=== PATIENT | male | born 1995 | race Caucasian/White ===

== ENCOUNTER 2017-01-28 15:50 | Emergency (ER) | payer OTHER ==
[2017-01-28 16:04] VITALS: BP 126/56; PULSE 75; TEMP 98.6; BMI 24.3
[2017-01-28] MEDS ORDERED: MAG HYDROX/AL HYDROX/SIMETH 30 ML UNIT-DOSE CUP PO ONE (16:37)
[2017-01-28] MEDS ORDERED: MAG HYDROX/AL HYDROX/SIMETH 30 ML UNIT-DOSE CUP ONE (16:42)
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
== END 2017-01-28 20:11 | disposition home or self-care (01) ==
LOC: JERFT 15:50
DX: S02.69XA Fracture of mandible of other specified site, initial encounter for closed fracture (principal); Y04.2XXA Assault by strike against or bumped into by another person, initial encounter; Y93.89 Activity, other specified; Y92.480 Sidewalk as the place of occurrence of the external cause; Y07.9 Unspecified perpetrator of maltreatment and neglect
CPT/HCPCS: 70486-TC; 99281-25

== ENCOUNTER 2018-07-26 23:12 | Emergency (ER) | payer SELFPAY ==
[2018-07-26 23:20] VITALS: BP 131/58; PULSE 72; TEMP 98; BMI 24.1
--- NOTE | 2018-07-26 23:51 | PDOC ---
History of Present Illness - General Chief Complaint: Pain Stated Complaint: ABDOMINAL PAIN Time Seen by Provider: 07/26/18 23:50 - History of Present Illness Initial Comments: 07/27/18 00:19 The patient is a 22 year old male with no significant PMH who presents for evaluation of nausea, vomiting, abdominal pain. The patient reports a 3 day history of nausea, non-bilious, non-bloody vomiting and sharp epigastric abdominal pain prompting his presentation to the ED for further evaluation. He notes that he believes his symptoms began after eating dinner several days ago. He otherwise denies fevers, chills, SOB, chest pain, or changes with urination or bowel movements. Past History - Past Medical History Allergies/Adverse Reactions: Allergies Allergy/AdvReac Type Severity Reaction Status Date / Time No Known Allergies Allergy Verified 07/26/18 23:20 Home Medications: Ambulatory Orders Famotidine [Pepcid -] 20 mg PO DAILY #7 tablet 07/27/18 Ondansetron [Zofran -] 4 mg PO TID #21 tablet 07/27/18 COPD: No - Suicide/Smoking/Psychosocial Hx Smoking History: Never smoked Have you smoked in the past 12 months: No Number of Cigarettes Smoked Daily: 3 Information on smoking cessation initiated: No Hx Alcohol Use: No Drug/Substance Use Hx: No Substance Use Type: None Review of Systems - Review of Systems Comments:: 07/27/18 00:21 Constitutional: No fevers, chills, fatigue, malaise HEENT: No Rhinorrhea, nasal congestion, visual changes Cardiovascular: No chest pain, syncope, palpitations, lightheadedness Respiratory: No Cough, SOB, Hemoptysis, Gastrointestinal: Abdominal pain, nausea, vomiting. No Constipation, Diarrhea, Melena Genitourinary: No Dysuria, Frequency, Urgency, Hesitancy, Hematuria, Flank pain Musculoskeletal: No Myalgia, arthralgia Skin: No rashes, itching, bruising, pallor Neurologic: No Headache, Dizziness, Numbness, Weakness, or Tingling Psychiatric: No Hallucinations. No SI or HI *Physical Exam - Vital Signs Last Vital Signs Temp Pulse Resp BP Pulse Ox 98.0 F 72 16 131/58 L 98 07/26/18 23:19 07/26/18 23:19 07/26/18 23:19 07/26/18 23:19 07/26/18 23:19 - Physical Exam Comments: 07/27/18 00:21 General Appearance: Nourished. No Apparent Distress HEENT: No Pharyngeal Erythema, Tonsillar Exudate, Tonsillar Erythema Neck: No Cervical Lymphadenopathy Respiratory/Chest: Lungs Clear, Normal Breath Sounds. No Crackles, Rales, Rhonchi, Wheezing Cardiovascular: Regular Rhythm, Regular Rate. No Murmur, Gallops, Rubs Gastrointestinal/Abdominal: Normal Bowel Sounds, Soft. Mild epigastric discomfort with deep palpation. No Guarding, Rebound, Tenderness Musculoskeletal: No CVA Tenderness Extremity: Normal Capillary Refill Integumentary: Normal Color, Dry, Warm Neurologic: Fully Oriented, Alert, Normal Mood/Affect, Normal Response, Moderate Sedation - Procedure Monitoring Vital Signs: Procedure Monitoring Vital Signs Temperature 98.0 F 07/26/18 23:19 Pulse Rate 72 07/26/18 23: Respiratory Rate 16 07/26/18 23:19 Blood Pressure 131/58 L 07/26/18 23:19 O2 Sat by Pulse Oximetry (%) 98 07/26/18 23:19 ED Treatment Course - LABORATORY CBC & Chemistry Diagram: 07/27/18 00:27 07/27/18 00:27 Medical Decision Making - Medical Decision Making 07/27/18 00:22 The patient is a 22 year old male with no significant PMH who presents for evaluation of nausea, vomiting, abdominal pain. Differential includes but is not limited to: Gastritis, Pancreatitis, Viral, Infectious, Metabolic Derangement. Given the patient's history and physical exam, we will obtain a cbc, cmp, lipase to evaluate further. We will treat with iv fluids, pepcid, zofran, maalox and continue to monitor and reassess while here in the ED. 07/27/18 01:40 CBC, cmp, lipase are unremarkable. The patient reports improvement in his symptoms. We are comfortable discharging the patient home with primary care provider follow up. It is likely the patient's symptoms are due to a viral gastroenteritis. We discussed the results, plan, and return precautions with the patient who voiced understanding and is agreeable with the plan. *DC/Admit/Observation/Transfer Diagnosis at time of Disposition: Nausea and vomiting Qualifiers: Vomiting type: unspecified Vomiting Intractability: non-intractable Qualified Code(s): R11.2 - Nausea with vomiting, unspecified Abdominal pain Qualifiers: Abdominal location: unspecified location Qualified Code(s): R10.9 - Unspecified abdominal pain - Discharge Dispostion Disposition: HOME Condition at time of disposition: Stable - Prescriptions Prescriptions: Famotidine [Pepcid -] 20 mg PO DAILY #7 tablet Ondansetron [Zofran -] 4 mg PO TID #21 tablet - Referrals Referrals: Hermilo Mar MD [Staff Physician] - - Patient Instructions Printed Discharge Instructions: DI for Nausea -- Adult, DI for Vomiting -- Adult, DI for Abdominal Pain-Adult Additional Instructions: Please return to the ER if you experience concerning or worsening symptoms including worsening difficulty breathing, weakness, or chest pain. Your lab results were normal here in the ER. Please call to schedule a follow up appointment with your primary care provider within 2-3 days to discuss your ER visit and further management of your symptoms. Por favor, regrese a la ER si experimenta o empeora los sntomas, incluyendo el empeoramiento de la dificultad respiratoria, debilidad o dolor torcico. Los resultados de domingo laboratorio timmy normales aqu en urgencias. Por favor llame para programar catalina juventino de seguimiento con domingo proveedor de atencin primaria dentro de 2-3 edouard para discutir domingo visita de urgencias y la administracin de patsy sntomas. Print Language: VINCENTIAN - Post Discharge Activity
[2018-07-26] MEDS ORDERED: SODIUM CHLORIDE 1,000 ML IV STA (23:55)
[2018-07-26] MEDS ORDERED: FAMOTIDINE 20 MG/50 ML IVPB 20 MG/50 ML MG IVPB ONE (23:55)
[2018-07-26] MEDS ORDERED: MAG HYDROX/AL HYDROX/SIMETH 30 ML UNIT-DOSE CUP PO ONE (23:55)
[2018-07-26] MEDS ORDERED: ONDANSETRON 4 MG/2 ML VIAL IVPUSH ONE (23:55)
[2018-07-27] MEDS ORDERED: MAG HYDROX/AL HYDROX/SIMETH 30 ML UNIT-DOSE CUP ONE (00:32)
[2018-07-27] MEDS ORDERED: FAMOTIDINE 20 MG/50 ML IVPB 20 MG/50 ML MG IVPB ONE (00:32)
[2018-07-27] MEDS ORDERED: ONDANSETRON 4 MG/2 ML VIAL ONE (00:32)
[2018-07-27 01:05] LABS: BASO % 0.5 % (0-2.0); EOS % 2.7 % (0-4.5); HEMATOCRIT 43.4 % (35.4-49); HEMOGLOBIN 15.2 GM/dL (11.7-16.9); LYMPH % 41.5 % (8-40); MCH 33.3 pg (25.7-33.7); MCHC 35.1 g/dl (32.0-35.9); MEAN CELL VOLUME 94.8 fl (80-96); MEAN PLT VOLUME 8.5 fl (7.5-11.1); NEUT % 48.3 % (42.8-82.8); PLATELET COUNT 247 K/MM3 (134-434); RBC 4.58 M/mm3 (4.00-5.60); RDW 12.5 % (11.9-15.9); WHITE BLOOD COUNT 5.9 K/mm3 (4.0-10.0)
--- NOTE | 2018-07-27 01:09 | PDOC ---
Attending Attestation - Resident Resident Name: Sadiq Kirkel - ED Attending Attestation I have performed the following: I have examined & evaluated the patient, The case was reviewed & discussed with the resident, I agree w/resident's findings & plan, Exceptions are as noted - HPI HPI: 07/27/18 01:08 22 yo male p/w several days of nausea and vomiting 07/27/18 01:09 - Physicial Exam PE: 07/27/18 01:35 wnwd 22 yo male p/w nausea and vomiting head ncat neck supple lungs cta b/l cvs [id number] abd no rebound,no guarding ext no edema skin warm and dry no flank pain neuro axox3,ambulatory - Medical Decision Making 07/27/18 01:39 pt is afebrile,benign abd exam, labs are unremarkable imp gastritis, d/c home
[2018-07-27 01:28] LABS: ALBUMIN 4.6 g/dl (3.4-5.0); ALK PHOS 104 U/L (45-117); ANION GAP 7 MMOL/L (8-16); BILIRUBIN,TOTAL 0.6 mg/dL (0.2-1); BLOOD UREA NITROGEN 14 mg/dL (7-18); CALCIUM 9.1 mg/dL (8.5-10.1); CHLORIDE 103 mmol/L (98-107); CO2 29 mmol/L (21-32); CREATININE 0.7 mg/dL (0.55-1.3); GLUCOSE,RANDOM 76 mg/dL (74-106); LIPASE 122 U/L (73-393); POTASSIUM 4.4 mmol/L (3.5-5.1); SGOT/AST 24 U/L (15-37); SGPT/ALT 46 U/L (13-61); SODIUM 139 mmol/L (136-145); TOT PROT 8.1 g/dl (6.4-8.2)
== END 2018-07-27 01:58 | disposition home or self-care (01) ==
LOC: JER 23:12
PROC: 3E033GC Introduction of Other Therapeutic Substance into Peripheral Vein, Percutaneous Approach (ICD-10-PCS; principal; 2018-07-26)
PROC: 3E0337Z Introduction of Electrolytic and Water Balance Substance into Peripheral Vein, Percutaneous Approach (ICD-10-PCS; 2018-07-26)
DX: R11.2 Nausea with vomiting, unspecified (principal)
CPT/HCPCS: 36415; 80053; 83690; 85025; 99282-25; J7030

== ENCOUNTER 2019-05-16 01:19 | Emergency (ER) | payer SELFPAY ==
[2019-05-16 01:43] VITALS: BP 122/67; PULSE 89; TEMP 97.2; BMI 24.3
--- NOTE | 2019-05-16 02:38 | PDOC ---
History of Present Illness <Jacqueline Jacobsen - Last Filed: 05/16/19 05:19> - General History Source: Patient, Sl[employer] Fil[employer] Operator Used (Shan [id number]) - History of Present Illness Initial Comments: 05/16/19 02:38 Spencer Bey is an otherwise healthy 23M presenting with 3 weeks of flu- like symptoms. Has been seen in other ED and discharged home, but symptoms have not resolved, gotten worse. Now says it is difficult to breath sometimes, has chest pain from coughing so much, sore throat, dizziness, poor appetite. Some fever/chills in the morning. Tried NyQuil, Claritin, Tylenol, not effective. No other PMH. No allergies. Smokes cigarettes and marijuana sporadically, drinks alcohol socially, denies illegal substance use. <Shabbir Floyd - Last Filed: 05/16/19 06:05> - General Chief Complaint: Cold Symptoms Stated Complaint: COLD SYMPTOMS Time Seen by Provider: 05/16/19 02:37 Past History <Jacqueline Jacobsen - Last Filed: 05/16/19 05:19> - Past Medical History COPD: No - Immunization History Immunization Up to Date: Yes - Psycho Social/Smoking Cessation Hx Smoking History: Current every day smoker Have you smoked in the past 12 months: Yes Number of Cigarettes Smoked Daily: 10 Information on smoking cessation initiated: No Hx Alcohol Use: No Drug/Substance Use Hx: No Substance Use Type: None <Shabbir Floyd - Last Filed: 05/16/19 06:05> - Past Medical History Allergies/Adverse Reactions: Allergies Allergy/AdvReac Type Severity Reaction Status Date / Time No Known Allergies Allergy Verified 05/16/19 01:41 Home Medications: Ambulatory Orders Famotidine [Pepcid -] 20 mg PO DAILY #7 tablet 07/27/18 Ondansetron [Zofran -] 4 mg PO TID #21 tablet 07/27/18 Fluticasone Prop 0.05% Nasal [Flonase -] 1 - 2 spray NS DAILY #1 spray.pump Review of Systems - Review of Systems Constitutional: Yes: Chills, Fever, Loss of Appetite. No: Night Sweats HEENTM: No: Blurred Vision, Tinnitus, Nose Bleeding, Hearing Loss, Dental Problems Respiratory: Yes: Cough, Shortness of Breath. No: SOB with Exertion, SOB at Rest Cardiac (ROS): Yes: Chest Tightness. No: Palpitations, Syncope ABD/GI: No: Abdominal Distended, Constipated, Diarrhea, Nausea, Vomiting : No: Symptoms Reported Musculoskeletal: Yes: Symptoms Reported Integumentary: Yes: Symptoms Reported, Lumps (1cm lump to medial L ankle) Neurological: Yes: Headache. No: Seizure Endocrine: No: Symptoms Reported Hematologic/Lymphatic: No: Symptoms Reported All Other Systems: Reviewed and Negative <Shabbir Floyd - Last Filed: 05/16/19 06:05> *Physical Exam - Vital Signs Last Vital Signs Temp Pulse Resp BP Pulse Ox 97.2 F L 89 20 122/67 99 05/16/19 01:41 05/16/19 01:41 05/16/19 01:41 05/16/19 01:41 05/16/19 01:41 <Jacqueline Jacobsen - Last Filed: 05/16/19 05:19> - Vital Signs Last Vital Signs Temp Pulse Resp BP Pulse Ox 97.2 F L 89 20 122/67 99 05/16/19 01:41 05/16/19 01:41 05/16/19 01:41 05/16/19 01:41 05/16/19 01:41 - Physical Exam General Appearance: Yes: Nourished, Thin. No: Appropriately Dressed, Apparent Distress HEENT: positive: EOMI, YULIANA, Normal Voice, Symmetrical, Pharynx Normal. negative: Scleral Icterus (R), Scleral Icterus (L) Neck: positive: Trachea midline, Normal Thyroid, Supple. negative: Tender, Lymphadenopathy (R), Lymphadenopathy (L) Respiratory/Chest: positive: Lungs Clear, Normal Breath Sounds. negative: Chest Tender, Respiratory Distress, Accessory Muscle Use, Crackles, Rales, Rhonchi, Stridor, Wheezing Cardiovascular: positive: Regular Rhythm, Regular Rate. negative: Edema, Murmur Gastrointestinal/Abdominal: positive: Normal Bowel Sounds, Flat, Soft. negative : Tender, Distended, Guarding Musculoskeletal: positive: Normal Inspection. negative: CVA Tenderness Extremity: positive: Normal Capillary Refill, Normal Inspection, Normal Range of Motion Integumentary: positive: Normal Color, Dry, Warm Neurologic: positive: Alert, Normal Mood/Affect, Normal Response <Jurao,Shabbir - Last Filed: 05/16/19 06:05> ED Treatment Course - LABORATORY CBC & Chemistry Diagram: 05/16/19 04:04 05/16/19 04:04 - ADDITIONAL ORDERS Additional order review: Laboratory Results 05/16/19 04:04 Sodium 140 Potassium 4.3 Chloride 103 Carbon Dioxide 28 Anion Gap 9 BUN 10.7 Creatinine 0.8 Est GFR (CKD-EPI)AfAm 148.00 Est GFR (CKD-EPI)NonAf 127.70 Random Glucose 86 Calcium 9.6 Total Bilirubin 0.7 AST 23 ALT 34 Alkaline Phosphatase 101 Total Protein 8.3 H Albumin 4.6 05/16/19 04:04 RBC 4.82 MCV 95.8 MCHC 34.2 RDW 12.3 MPV 8.3 Neutrophils % 58.0 D Lymphocytes % 23.4 D Monocytes % 12.9 H D Eosinophils % 5.1 H D Basophils % 0.6 <Jacqueline Jacobsen - Last Filed: 05/16/19 05:19> - LABORATORY CBC & Chemistry Diagram: 05/16/19 04:04 05/16/19 04:04 <Shabbir Floyd - Last Filed: 05/16/19 06:05> Medical Decision Making - Medical Decision Making 05/16/19 02:38 Spencer Bey is an otherwise healthy 23M presenting with 3 weeks of flu- like symptoms. Presentation consistent with viral URI, no other concerning symptoms of VS abnormalities. Will evaluate with: CMP CBC CXR Rapid Flu 05/16/19 05:29 CXR appears grossly normal on preliminary read. No concerning abnormalities on labs. Rapid flu negative. No concerning pathologies noted at this time, can be safely discharged home. <Shabbir Floyd - Last Filed: 05/16/19 06:05> Discharge - Discharge Information Problems reviewed: Yes - Admission No <Jacqueline Jacobsen - Last Filed: 05/16/19 05:19> <Shabbir Floyd - Last Filed: 05/16/19 06:05> - Discharge Information Clinical Impression/Diagnosis: Viral respiratory illness Condition: Improved Disposition: HOME - Additional Discharge Information Prescriptions: Fluticasone Prop 0.05% Nasal [Flonase -] 1 - 2 spray NS DAILY #1 spray.pump - Patient Discharge Instructions Patient Printed Discharge Instructions: DI for Viral Upper Respiratory Infection -- Adult Print Language: LIBERIAN
--- NOTE | 2019-05-16 02:40 | PDOC ---
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 He has a runny nose and he feels discomfort in the left nare; pt has yellow and bloody discharge from the nose. Pt is a smoker. Pt states that he has been to different ERs and he hasn't been given XR or blood tests and he feels unwell and he hasn't been worked up properly. Fevers at home. No fever here at this time. - Physicial Exam PE: 05/16/19 05:16 No sinus tenderness with percussion. Afebrile HEENT normal Throat normal. Pt has clear heart and lungs. Pt has sweats Pt has soft NT ND abd No flank pain Ext NT No edema - Medical Decision Making 05/16/19 04:43 CBC normal CXR is clear 05/16/19 05:00 chem is normal Flu culture was just sent. Pt is feeling a little better in the ER. 05/16/19 05:17 Pt will get oral hydration with water. Pt awaiting flu culture and then he will be discharged if normal.
[2019-05-16 04:13] LABS: BASO % 0.6 % (0-2.0); EOS % 5.1 % (0-4.5); HEMATOCRIT 46.2 % (35.4-49); HEMOGLOBIN 15.8 GM/dL (11.7-16.9); LYMPH % 23.4 % (8-40); MCH 32.7 pg (25.7-33.7); MCHC 34.2 g/dl (32.0-35.9); MEAN CELL VOLUME 95.8 fl (80-96); MEAN PLT VOLUME 8.3 fl (7.5-11.1); MONO % 12.9 % (3.8-10.2); PLATELET COUNT 262 K/MM3 (134-434); RBC 4.82 M/mm3 (4.00-5.60); RDW 12.3 % (11.9-15.9); WHITE BLOOD COUNT 7.8 K/mm3 (4.0-10.0)
[2019-05-16 04:53] LABS: ALBUMIN 4.6 g/dl (3.4-5.0); BILIRUBIN,TOTAL 0.7 mg/dL (0.2-1); BLOOD UREA NITROGEN 10.7 mg/dL (7-18); CALCIUM 9.6 mg/dL (8.5-10.1); CREATININE 0.8 mg/dL (0.55-1.3); POTASSIUM 4.3 mmol/L (3.5-5.1); TOT PROT 8.3 g/dl (6.4-8.2)
[2019-05-16] MEDS ORDERED: SODIUM CHLORIDE 0.9% 500 ML INFUS.BAG IV ONE (05:00)
== END 2019-05-16 05:21 | disposition home or self-care (01) ==
LOC: JER 01:19
DX: J06.9 Acute upper respiratory infection, unspecified (principal); B97.89 Other viral agents as the cause of diseases classified elsewhere
CPT/HCPCS: 36415; 71046-TC-FY; 80053; 85025; 87804; 99282-25

== ENCOUNTER 2021-06-28 15:02 | Emergency (ER) | payer SELFPAY ==
[2021-06-28 15:23] VITALS: BP 122/78; PULSE 87; TEMP 97.7; BMI 22.8
[2021-06-28] MEDS ORDERED: METHOCARBAMOL 500 MG TABLET PO ONE (17:00)
[2021-06-28] MEDS ORDERED: KETOROLAC TROMETHAMINE 60 MG/2 ML VIAL IM ONE (17:00)
[2021-06-28] MEDS ORDERED: KETOROLAC TROMETHAMINE 30 MG/1 ML VIAL ONE (17:16)
[2021-06-28] MEDS ORDERED: METHOCARBAMOL 500 MG TABLET ONE (17:16)
== END 2021-06-28 17:54 | disposition home or self-care (01) ==
LOC: JERFT 15:02
PROC: 3E023GC Introduction of Other Therapeutic Substance into Muscle, Percutaneous Approach (ICD-10-PCS; principal; 2021-06-28)
DX: M54.2 Cervicalgia (principal); M54.50 Low back pain, unspecified
CPT/HCPCS: 72040-TC; 72100-TC-FY; 99284-25

== ENCOUNTER 2021-06-30 00:43 | Emergency (ER) | payer SELFPAY ==
[2021-06-30 01:24] VITALS: BP 128/69; PULSE 105; TEMP 98.3; BMI 24.4
[2021-06-30] MEDS ORDERED: NALOXONE HCL 0.4 MG/ML VIAL IVPUSH ONE (01:59)
[2021-06-30] MEDS ORDERED: NALOXONE HCL 0.4 MG/ML VIAL ONE (02:04)
[2021-06-30] MEDS ORDERED: SODIUM CHLORIDE 0.9% 1000 ML INFUS.BAG IV ONE (02:26)
[2021-06-30 02:42] LABS: BASO % 0.2 % (0-2.0); EOS % 0.1 % (0-4.5); HEMATOCRIT 39.6 % (35.4-49); HEMOGLOBIN 13.8 GM/dL (11.7-16.9); LYMPH % 6.6 % (8-40); MCH 32.6 pg (25.7-33.7); MCHC 34.8 g/dl (32.0-35.9); MEAN CELL VOLUME 93.8 fl (80-96); MEAN PLT VOLUME 8.4 fl (7.5-11.1); MONO % 4.3 % (3.8-10.2); NEUT % 88.8 % (42.8-82.8); PLATELET COUNT 211 10^3/uL (134-434); RBC 4.23 M/mm3 (4.00-5.60); RDW 12.5 % (11.9-15.9); WHITE BLOOD COUNT 7.5 K/mm3 (4.0-10.0)
[2021-06-30 03:03] LABS: CHLORIDE 102 mmol/L (98-107); SODIUM 135 mmol/L (136-145)
[2021-06-30 03:05] LABS: ALBUMIN 4.1 g/dl (3.4-5.0); ANION GAP 10 MMOL/L (8-16); CALCIUM 8.9 mg/dL (8.5-10.1); CO2 24 mmol/L (21-32); GLUCOSE,RANDOM 116 mg/dL (74-106)
[2021-06-30 03:08] LABS: CREATININE 0.8 mg/dL (0.55-1.3); SGPT/ALT 39 U/L (13-61)
[2021-06-30 03:09] LABS: SGOT/AST 21 U/L (15-37)
[2021-06-30 03:10] LABS: BILIRUBIN,TOTAL 0.7 mg/dL (0.2-1); TOT PROT 7.2 g/dl (6.4-8.2)
[2021-06-30 03:11] LABS: ALK PHOS 82 U/L (45-117)
== END 2021-06-30 04:20 | disposition home or self-care (01) ==
LOC: JER 00:43
PROC: 3E033GC Introduction of Other Therapeutic Substance into Peripheral Vein, Percutaneous Approach (ICD-10-PCS; principal; 2021-06-30)
DX: T40.2X1A Poisoning by other opioids, accidental (unintentional), initial encounter (principal)
CPT/HCPCS: 36415; 80053; 80307; 85025; 93005; 93010; 99284-25

== ENCOUNTER 2021-11-22 10:29 | Emergency (ER) | payer SELFPAY ==
[2021-11-22 10:41] VITALS: BP 0/0; PULSE 0; TEMP 0; BMI 21.7
[2021-11-22] MEDS ORDERED: SODIUM CHLORIDE 1,000 ML IV STA (11:46)
[2021-11-22] MEDS ORDERED: ONDANSETRON 4 MG/2 ML VIAL IVPUSH ONE (12:49)
[2021-11-22] MEDS ORDERED: ONDANSETRON 4 MG/2 ML VIAL ONE (12:51)
[2021-11-22 13:01] LABS: BASO % 0.2 % (0-2.0); HEMATOCRIT 42.6 % (35.4-49); HEMOGLOBIN 14.8 GM/dL (11.7-16.9); LYMPH % 3.9 % (8-40); MCH 32.8 pg (25.7-33.7); MCHC 34.9 g/dl (32.0-35.9); MEAN CELL VOLUME 94.2 fl (80-96); MONO % 8.2 % (3.8-10.2); NEUT % 87.7 % (42.8-82.8); PLATELET COUNT 245 10^3/uL (134-434); RBC 4.52 M/mm3 (4.00-5.60); RDW 12.5 % (11.9-15.9); WHITE BLOOD COUNT 6.5 K/mm3 (4.0-10.0)
[2021-11-22 13:21] LABS: CHLORIDE 99 mmol/L (98-107); SODIUM 134 mmol/L (136-145)
[2021-11-22 13:23] LABS: CALCIUM 9.8 mg/dL (8.5-10.1)
[2021-11-22 13:24] LABS: ALBUMIN 4.9 g/dl (3.4-5.0); ANION GAP 10 MMOL/L (8-16); BLOOD UREA NITROGEN 10.7 mg/dL (7-18); CO2 25 mmol/L (21-32); GLUCOSE,RANDOM 90 mg/dL (74-106)
[2021-11-22 13:26] LABS: MAGNESIUM 2.1 mg/dL (1.8-2.4)
[2021-11-22 13:27] LABS: CREATININE 0.8 mg/dL (0.55-1.3); SGOT/AST 39 U/L (15-37); SGPT/ALT 31 U/L (13-61)
[2021-11-22 13:28] LABS: TOT PROT 8.4 g/dl (6.4-8.2)
[2021-11-22 13:29] LABS: ALK PHOS 99 U/L (45-117)
[2021-11-22 16:00] LABS: EPI CELLS 6 /uL (0-25.1); HYALINE CASTS 4 /uL (0-3.1); URINE APPEARANCE CLEAR; URINE BACTERIA 35 /uL (0-1359); URINE BILIRUBIN NEGATIVE (NEGATIVE); URINE COLOR YELLOW; URINE GLUCOSE (UA) NEGATIVE (NEGATIVE); URINE KETONE 3+ (NEGATIVE); URINE LEUK ESTERASE NEGATIVE (NEGATIVE); URINE NITRITE NEGATIVE (NEGATIVE); URINE PROTEIN 1+ (NEGATIVE); URINE RBC 9 /uL (0-23.9); URINE UROBILINOGEN 0.2 mg/dL (0.2-1.0); URINE WBC 2 /uL (0-25.8)
[2021-11-22 16:11] LABS: COCAINE, UR NEGATIVE (NEGATIVE)
[2021-11-22 16:12] LABS: METHADONE, UR NEGATIVE (NEGATIVE); PHENCYCLIDINE,URINE NEGATIVE (NEGATIVE); URINE BARBITURATES NEGATIVE (NEGATIVE); URINE BENZODIAZEPINES NEGATIVE (NEGATIVE)
[2021-11-22 16:13] LABS: OPIATES, URI POSITIVE (NEGATIVE); URINE AMPHETAMINES NEGATIVE (NEGATIVE)
[2021-11-22] MEDS ORDERED: BACITRACIN 15 GM TUBE TOPICAL OINTMENT TP ONE (16:41)
== END 2021-11-22 17:13 | disposition home or self-care (01) ==
LOC: JERFT 10:29
PROC: 3E033GC Introduction of Other Therapeutic Substance into Peripheral Vein, Percutaneous Approach (ICD-10-PCS; principal; 2021-11-22)
DX: F19.920 Other psychoactive substance use, unspecified with intoxication, uncomplicated (principal)
CPT/HCPCS: 36415; 80053; 80307; 81003; 83735; 85025; 99284-25